=== PATIENT | male | born 1935 | race Caucasian/White ===

== ENCOUNTER 2018-09-09 16:47 | Emergency (ER) | payer MEDICARE, OTHER ==
[~2018-09-09] VITALS: Ht 167.6 cm; Wt 72.7 kg
[2018-09-09] MEDS ORDERED: CRESTOR10 MG PO (17:00)
[2018-09-09] MEDS ORDERED: AMLODIPINE BESYL5 MG PO (17:00)
[2018-09-09] MEDS ORDERED: ZETIA10 MG PO (17:00)
[2018-09-09] MEDS ORDERED: ASPIRIN81 MG PO (17:01)
[2018-09-09] MEDS ORDERED: LISINOPRIL20 MG PO (17:01)
[2018-09-09] MEDS ORDERED: VITAMIN D31000 UNI1 PO (17:01)
[2018-09-09] MEDS ORDERED: METO50TA52 PO (17:01)
[2018-09-09] MEDS ORDERED: AMOX/K CLAV875 M1 PO (17:19)
[2018-09-09] MEDS ORDERED: FLOXIN OTIC0.3 % AD (17:19)
[2018-09-09 17:30] VITALS: BP 155/75
== END 2018-09-09 17:30 | disposition home or self-care (01) ==
LOC: ED 16:47
DX: H66.91 Otitis media, unspecified, right ear (principal); I10 Essential (primary) hypertension; I25.2 Old myocardial infarction

== ENCOUNTER 2019-06-25 | Emergency (ER) | payer MEDICARE, OTHER ==
[~2019-06-25] MED LIST: AMLODIPINE BESYL5 MG PO; AMOX/K CLAV875 M1 PO; ASPIRIN81 MG PO; CRESTOR10 MG PO; FLOXIN OTIC0.3 % AD; LISINOPRIL20 MG PO; METO50TA52 PO; VITAMIN D31000 UNI1 PO; ZETIA10 MG PO
[2019-06-25] MEDS ORDERED: BAYER ASA325 MG PO (03:19)
--- NOTE | 2019-06-25 03:33 | NUR ---
BREATHING TREATMENT GIGEN BACK TO BACK. BREATHING TECH. FOR GOOD DEPOSITION TO THE LUNGS.
[2019-06-25 03:34] LABS: HEMATOCRIT 39.1 % (39.0-50.0); HEMOGLOBIN 12.9 g/dl (14.0-18.0); IMMATURE GRANULOCYTES 0.3 % (0.0-5.0); MEAN CELL VOLUME 92.4 fL CALC (80.0-100.0); MEAN CORPUSCULAR HGB 30.5 pG CALC (26.0-32.0); NEUT# 5.53 thou/uL (1.82-7.42); RED BLOOD COUNT 4.23 mill/uL (4.70-6.10); RED CELL DISTRI WIDTH 12.4 % (11.5-15.5)
[2019-06-25 03:51] LABS: ALBUMIN 4.2 g/dL (3.2-5.0); ALKALINE PHOSPHATASE 42 u/l (38-126); ANION GAP 14 (6-22 (CALC)); BUN 18 mg/dL (8-23); BUN/CREATININE RATIO 23 (12-20 (CALC)); CARBON DIOXIDE 23 mmol/l (22-30); CHLORIDE 104 mmol/l (95-108); CREATININE 0.8 mg/dL (0.7-1.3); GFR > 60 ML/MIN (>=60 (CALC)); GFR FOR AFR.AMER. > 60 ML/MIN (>=60 (CALC)); POTASSIUM 4.8 mmol/l (3.5-5.1); SGOT/AST 23 u/l (19-48); SODIUM 136 mmol/l (137-146)
[2019-06-25 03:52] LABS: BILIRUBIN, TOTAL 0.6 mg/dL (0.0-1.4)
[2019-06-25] MEDS ORDERED: VENTOLIN HFA IN (04:42)
[2019-06-25] MEDS ORDERED: PREDNISONE50 MG PO (04:42)
[2019-06-25] MEDS ORDERED: TESSALON PER100 MG PO (04:42)
== END 2019-06-25 05:00 | disposition home or self-care (01) ==
PROVIDERS: Family Medicine
DX: J20.6 Acute bronchitis due to rhinovirus (principal); I10 Essential (primary) hypertension; I25.2 Old myocardial infarction

== ENCOUNTER 2022-07-06 13:06 | Observation (INO) | payer MEDICARE, OTHER ==
[~2022-07-06] VITALS: Ht 167.6 cm; Wt 68.4 kg
[2022-07-06] VITALS (7 sets, daily range): BP systolic 104–125; BP diastolic 53–62
[~2022-07-06 13:06] MED LIST changes: +BAYER ASA325 MG PO; +PREDNISONE50 MG PO; +TESSALON PER100 MG PO; +VENTOLIN HFA IN
--- NOTE | 2022-07-06 13:11 | NUR ---
PT ARRIVED VIA [facility] WITH C/O DIARRHEA AND CP. PT WITH STEADY GAIT TO STRETCH NAD, SPEECH CLEAR, ANSWERING QUESTIONS APPROPRIATE. #20 RAC.
[2022-07-06] MEDS ORDERED: LISINOPRIL20 M1 PO (13:22)
[2022-07-06] MEDS ORDERED: METOPROLOL SUCC50 MG PO (13:22)
[2022-07-06] MEDS ORDERED: CRESTOR10 MG PO (13:23)
[2022-07-06] MEDS ORDERED: ZETIA10 MG PO (13:23)
[2022-07-06] MEDS ORDERED: AMLODIPINE BESY10 MG PO (13:24)
[2022-07-06] MEDS ORDERED: BAYER CHEWABLE81 MG (13:26)
[2022-07-06] MEDS ORDERED: PROTONIX40 M2 PO (13:26)
[2022-07-06 14:12] LABS: BASO% 0.1 % (0-3); EOS% 1.2 % (0-8); HEMATOCRIT 39.2 % (39.0-50.0); HEMOGLOBIN 13.2 g/dl (14.0-18.0); IMMATURE GRANULOCYTES 0.1 % (0.0-5.0); LYMPH% 12.5 % (15-41); MEAN CELL VOLUME 96.3 fL CALC (80.0-100.0); MEAN CORPUSCULAR HGB 32.4 pG CALC (26.0-32.0); MEAN CORPUSCULAR HGB CONC 33.7 g/dL CAL (32.0-36.0); MONO% 6.6 % (2-13); NEUT# 7.85 thou/uL (1.82-7.42); NEUT% 79.5 % (42-76); RED BLOOD COUNT 4.07 mill/uL (4.70-6.10); RED CELL DISTRI WIDTH 12.4 % (11.5-15.5)
[2022-07-06 14:19] LABS: PROTHROMBIN TIME 10.1 SECONDS (9.0-12.5)
--- NOTE | 2022-07-06 14:40 | NUR ---
pt state pain to the left side of chest. states the pain is gone now. per she gave the patient 1 nitro at home. pt states pain improved after nitro at home. pt state several episodes of diarrhea.
[2022-07-06 15:18] LABS: ALBUMIN 4.1 g/dL (3.2-5.0); ALKALINE PHOSPHATASE 51 u/l (38-126); ANION GAP 8 (6-22 (CALC)); BILIRUBIN, TOTAL 0.7 mg/dL (0.0-1.4); BUN 16 mg/dL (8-23); BUN/CREATININE RATIO 16 (12-20 (CALC)); CARBON DIOXIDE 26 mmol/l (22-30); CHLORIDE 107 mmol/l (95-108); CREATININE 1.1 mg/dL (0.7-1.3); GFR FOR AFR.AMER. > 60 ML/MIN (>=60 (CALC)); GFR OTHER RACES > 60 ML/MIN (>=60 (CALC)); LIPASE 51 u/l (23-300); POTASSIUM 5.1 mmol/l (3.5-5.1); SGOT/AST 27 u/l (19-48); SODIUM 136 mmol/l (137-146); TOTAL PROTEIN 6.5 g/dL (6.3-8.2)
--- NOTE | 2022-07-06 16:45 | NUR ---
REPORT CALLED TO MS IGNACIO
--- NOTE | 2022-07-06 17:10 | NUR ---
Admission Note Report Given to: MS NURSE Transported by: X Wheelchair Stretcher Transported with: Nurse X Transporter X Patent IV O2 X Seam Sewer Location: ICU X [facility]
--- NOTE | 2022-07-06 17:15 | NUR ---
PATIENT ARRIVED TO UNIT FROM ER 262 PATIENT REPORTS NO PAIN. ASSESSMENT DONE. PATIENT ALERT AND ORIENTATED X4 VENETIE. SPOUSE AT BEDSIDE. ORIENTATED TO ROOM AND CALL LIGHT. BED AT LOWEST WITH CALL LIGHT WITHIN REACH. WILL CONTINUE TO MONITOR.
--- NOTE | 2022-07-06 20:00 | NUR ---
RECEIVED REPORT FROM DAY SHIFT RN. PT IS RESTING IN BED IN SUPINE POSITON, AWAKE, WATCHING TV. ASSESSMENT COMPLETED. PT IS A&OX3 AND ABLE TO COMMUNICATE NEEDS WITH STAFF. PT DENIES ANY PAIN OR DISCOMFORT AT THIS TIME, NO SIGNS OF DISTRESS NOTED. PT IS ON TELEMETRY, MONITORED BY ED. IV IS PATENT AND FLUSHES WELL. PT DENIES ANY DIARRHEA AT THIS TIME. PT IS ON ROOM AIR, BREATHING IS EVEN AND UNLABORED. CALL LIGHT AND BEDSIDE TABLE WITHIN REACH, SAFETY PRECAUTIONS IN PLACE.
--- NOTE | 2022-07-06 23:56 | NUR ---
PT RESTING IN BED IN SUPINE POSITON, EYES CLOSED. NO SIGNS OF PAIN OR DISTRESS NOTED AT THIS TIME. BREATHING IS EVEN AND UNLABORED. CALL LIGHT AND BEDSIDE TABLE WITHIN REACH.
[2022-07-07 00:10] VITALS: BP 97/44
[2022-07-07 03:44] VITALS: BP 134/69
--- NOTE | 2022-07-07 03:54 | NUR ---
PT RESTING IN BED IN SUPINE POSITION, EYES CLOSED. NO SIGNS OF PAIN OR DISTRESS NOTED AT THIS TIME. IV IS PATENT AND FLUSHES WELL. TELEMETRY IN PLACE, MONITORED BY ED. BREATHING IS EVEN AND UNLABORED. CALL LIGHT AND BEDSIDE TABLE WITHIN REACH. SAFETY PRECAUTIONS IN PLACE.
[2022-07-07 06:02] VITALS: BP 129/67
[2022-07-07 06:18] LABS: CHOLESTEROL HDL RATIO 3.8 (<4.4 (CALC)); MAGNESIUM 2.2 mg/dL (1.6-2.3)
[2022-07-07 07:52] VITALS: BP 129/67
--- NOTE | 2022-07-07 08:00 | NUR ---
GOT REPORT FROM UROLOGIC SURGEON NURSE. PATIENT ASSESSED. AOX3. PATIENT DENIES ANY DISTRESS OR DISCOMFORT. FALL PRECAUTIONS IN PLACE AND CALL LIGHT AND BEDSIDE TABLE WITH IN REACH. ADVISED TO CALL IF NEEDING ANYTHING. PATIENT VERBALIZED UNDERSTANDING.
[2022-07-07 11:28] VITALS: BP 140/59
--- NOTE | 2022-07-07 12:00 | NUR ---
PATIENT IN BED WITH AT BEDSIDE. NO SXS OF DISTRESS OR DISCOMFORT. PATIENT NOR NEEDS ANYTHING. PATIENT AGREED TO CALL IF NEEDING ANYTHING. PATIENT IS GOING TO BE DISCHARGED. PATIENT HOME MEDICATION GIVEN TO SPOUSE.
[2022-07-07] MEDS ORDERED: VANCOMYCIN HCL125 M1 PO (12:14)
--- NOTE | 2022-07-07 14:20 | NUR ---
Discharge instructions given. Patient verbalizes understanding of same. Discharged in stable condition via Wheelchair to Home with family. All belongings sent with pt.
== END 2022-07-07 14:20 | disposition home or self-care (01) ==
LOC: ED 13:06 → ED-I 15:44 → ED 15:45 → MS2 15:45
PROVIDERS: Nurse Practitioner; ADMIT Internal Medicine; ATTEND Internal Medicine
DX: A04.72 Enterocolitis due to Clostridium difficile, not specified as recurrent (principal); R07.9 Chest pain, unspecified; I25.10 Atherosclerotic heart disease of native coronary artery without angina pectoris; I25.2 Old myocardial infarction; Z85.46 Personal history of malignant neoplasm of prostate; Z95.5 Presence of coronary angioplasty implant and graft; I10 Essential (primary) hypertension; E78.5 Hyperlipidemia, unspecified
CPT/HCPCS: J1650